=== PATIENT | female | born 2000 | race African-American/Black ===

== ENCOUNTER 2019-05-23 01:51 | Inpatient (IN) | payer MEDICAID ==
[~2019-05-23] VITALS: Ht 165.1 cm; Wt 107.5 kg
[2019-05-23] MEDS ORDERED: SODIUM CHLORIDE 0.9% 1,000 ML IV ONE ×2 (02:37→08:45)
[2019-05-23 03:22] LABS: BASOPHILS % 0.6 % (0.0-2.0); EOSINOPHILS % 0.5 % (0.0-5.0); HEMATOCRIT. 39.2 % (36.0-48.0); HEMOGLOBIN. 13.4 g/dL (12.0-16.0); LYMPHOCYTES % 26.3 % (20.0-50.0); MEAN CORPUSCULAR HEMOGLOBIN 30.3 pg (28.0-32.0); MEAN CORPUSCULAR VOLUME 88.6 fL (81.0-99.0); MEAN PLATELET VOLUME 8.1 fl (7.4-10.4); MONOCYTES % 5.3 % (2.0-8.0); NEUTROPHILS % 67.3 % (40.0-76.0); PLATELET 368 x1000/uL (130-400); RED BLOOD CELL COUNT 4.42 mill/uL (4.2-5.4); RED CELL DISTRIBUTION WIDTH 13.1 % (11.6-14.6)
[2019-05-23 03:31] LABS: CHLORIDE 109 mEq/L (98-107)
[2019-05-23 03:35] LABS: HCG SCREEN NEGATIVE
[2019-05-23 03:36] LABS: ETHANOL BLOOD 116 mg/dL
[2019-05-23 06:41] LABS: CLARITY URINE CLEAR (CLEAR); COLOR URINE YELLOW (YELLOW); KETONES URINE NEGATIVE (NEGATIVE); LEUKOCYTE ESTERASE URINE NEGATIVE (NEGATIVE); NITRITE URINE NEGATIVE (NEGATIVE); OCCULT BLOOD URINE NEGATIVE (NEGATIVE); PROTEIN URINE NEGATIVE (NEGATIVE); SPECIFIC GRAVITY URINE 1.006 (1.005-1.030); UROBILINOGEN URINE 0.2 E.U./dL (0.2-1.0)
[2019-05-23 10:22] LABS: *AMPHETAMINES SCREEN URINE NEGATIVE (NEGATIVE); *BARBITURATES SCREEN URINE NEGATIVE (NEGATIVE); *BENZODIAZEPINES SCREEN URINE NEGATIVE (NEGATIVE); *COCAINE SCREEN URINE NEGATIVE (NEGATIVE)
[2019-05-23 10:23] LABS: CANNABINOID URINE SCREEN NEGATIVE (NEGATIVE); METHADONE URINE SCREEN NEGATIVE (NEGATIVE); OPIATES URINE SCREEN NEGATIVE (NEGATIVE); PHENCYCLIDINE URINE SCREEN NEGATIVE (NEGATIVE)
[2019-05-23] MEDS ORDERED: ACETAMINOPHEN 325MG TABLET PO PRN (12:45)
[2019-05-23] MEDS ORDERED: ONDANSETRON HCL 4MG/2ML INJ IV PRN (12:45)
[2019-05-23] MEDS: SODIUM CHLORIDE 0.45% 1,000 ML IV SCH (15:29)
[2019-05-23] MEDS: FAMOTIDINE 20MG/2ML VIAL IV SCH (15:29)
[2019-05-24 08:00] VITALS: BP 119/81
[2019-05-24 09:30] VITALS: BP 119/81
[2019-05-24] MEDS: SODIUM CHLORIDE 0.45% 1,000 ML IV SCH ×3 (09:43→22:17)
[2019-05-24] MEDS: FAMOTIDINE 20MG/2ML VIAL IV SCH (09:44)
[2019-05-24 12:00] VITALS: BP 105/64
[2019-05-24 16:00] VITALS: BP 115/56
[2019-05-24 18:02] LABS: BASOPHILS % 0.2 % (0.0-2.0); EOSINOPHILS % 1.1 % (0.0-5.0); HEMATOCRIT. 39.1 % (36.0-48.0); HEMOGLOBIN. 13.2 g/dL (12.0-16.0); LYMPHOCYTES % 27.6 % (20.0-50.0); MEAN CORPUSCULAR HEMOGLOBIN 30.3 pg (28.0-32.0); MEAN PLATELET VOLUME 8.3 fl (7.4-10.4); MONOCYTES % 5.9 % (2.0-8.0); NEUTROPHILS % 65.2 % (40.0-76.0); PLATELET 337 x1000/uL (130-400); RED BLOOD CELL COUNT 4.35 mill/uL (4.2-5.4)
[2019-05-24 18:09] LABS: CHLORIDE 107 mEq/L (98-107)
[2019-05-24 20:00] VITALS: BP 119/66
[2019-05-25] VITALS: BP 103/63
[2019-05-25 04:00] VITALS: BP 121/56
[2019-05-25 08:00] VITALS: BP 105/68
[2019-05-25] MEDS: FAMOTIDINE 20MG/2ML VIAL IV SCH (09:50)
[2019-05-25 12:18] VITALS: BP 120/65
[2019-05-25 13:40] VITALS: BP 120/65
== END 2019-05-25 14:05 | disposition home or self-care (01) | DRG 812 ==
LOC: ER 01:51 → EDBD 01:51 → 5WST 09:55 → ENRESERV 05-24 07:48
PROVIDERS: ADMIT Hospitalist; ATTEND Hospitalist
DX: T45.1X2A Poisoning by antineoplastic and immunosuppressive drugs, intentional self-harm, initial encounter (principal); R45.851 Suicidal ideations; F10.129 Alcohol abuse with intoxication, unspecified; Y92.89 Other specified places as the place of occurrence of the external cause
CPT/HCPCS: 36415; 80053; 80305; 80307; 80320; 80329; 81003; 84703; 85025; 93005; 96374; 99285; J3490; J7030; G0480